=== PATIENT | male | born 1970 | race Hispanic/Latino ===

== ENCOUNTER → 2018-05-22 | Outpatient (CLI) | payer OTHER ==
--- NOTE | 2018-05-22 10:08 | Diagnostic Imaging Report ---
Exam: Left knee 2 views History: Knee pain Comparison: None. Findings: No acute, displaced fracture or dislocation area mild medial compartment joint space narrowing and marginal osteophytosis. No definite joint effusion. Soft tissues are unremarkable. Impression: Mild medial compartment degenerative joint disease of the left knee. Signed by: Dr. Jesus Sahni M.D. on 05/22/2018 10:04 AM
== END ==
LOC: RAD 09:11
PROVIDERS: ATTEND Internal Medicine
DX: M25.562 Pain in left knee (principal)